=== PATIENT | male | born 1955 | race Caucasian/White ===

== ENCOUNTER 2023-12-23 06:30 | Day surgery (SDC) | payer OTHER ==
[~2023-12-23 06:30] MED LIST: Acetaminophen 325 MG Tab PO ONE; Acetaminophen 325 MG Tab PO SCH; Lactated Ringers 1,000 ML IV SCH; Morphine 8 MG, EPINEPHrine 0.3 MG, Cefuroxime 750 MG, Ketorolac 30 MG, Sodium Chloride ... PRN; Pregabalin 25 MG Cap PO ONE; Pregabalin 25 MG Cap PO SCH; Sodium Chloride 0.9% 10 ML Syringe FLUSH PRN; Sodium Chloride 0.9% 10 ML Syringe FLUSH SCH; Tranexamic Acid 1,000 MG/10 ML Vial ONE; Vancomycin 1 GM SDV ONE; oxyCODONE ER 10 MG TAB.ER PO ONE; oxyCODONE ER 10 MG TAB.ER PO SCH
[2023-12-23] MEDS ORDERED: Morphine 8 MG, EPINEPHrine 0.3 MG, Cefuroxime 750 MG, Ketorolac 30 MG, Sodium Chloride ... PRN ×5 (06:55)
[2023-12-23] MEDS ORDERED: Ropivacaine 0.5% 5 MG/ML 30 ML SDV ONE (06:59)
[2023-12-23] MEDS ORDERED: Propofol 200 MG/20 ML SDV ONE ×3 (07:00→07:01)
[2023-12-23] MEDS ORDERED: Midazolam 1 MG/ML 2 ML SDV ONE ×2 (07:00→07:12)
[2023-12-23] MEDS ORDERED: Lidocaine 2% 5 ML SDV ONE (07:06)
[2023-12-23] MEDS ORDERED: ceFAZolin 2 GM Vial ONE (07:32)
[2023-12-23] MEDS ORDERED: fentaNYL 100 MCG/2 ML SDV ONE (07:42)
[2023-12-23] MEDS ORDERED: ePHEDrine 50 MG/ML SDV ONE (08:06)
[2023-12-23] MEDS ORDERED: EPINEPHrine 1 MG/ML SDV ONE (08:22)
[2023-12-23] MEDS ORDERED: HYDROmorphone 0.5 MG/0.5 ML Syringe IVPUSH PRN (08:26)
[2023-12-23] MEDS ORDERED: Ondansetron 4 MG/2 ML SDV IVPUSH PRN (08:26)
[2023-12-23] MEDS: fentaNYL 100 MCG/2 ML SDV IVPUSH PRN ×2 (09:18→09:31)
[2023-12-23] MEDS ORDERED: Cyclobenzaprine 10 MG Tab PO PRN (09:27)
[2023-12-23] MEDS: oxyCODONE 5 MG Tab PO PRN ×2 (09:55→13:55)
== END 2023-12-23 13:55 | disposition home or self-care (01) ==
LOC: JD.SDS 06:30
PROVIDERS: ATTEND Orthopaedic Surgery
DX: M17.11 Unilateral primary osteoarthritis, right knee (principal); I10 Essential (primary) hypertension; K21.9 Gastro-esophageal reflux disease without esophagitis; E66.9 Obesity, unspecified; Z68.32 Body mass index [BMI] 32.0-32.9, adult; Z79.899 Other long term (current) drug therapy
CPT/HCPCS: 73560-26-RT; 73560-RT; 97161-GP; A9270-GY; C1713; C1776; J0171; J0690; J0697; J1170; J1885; J2250; J2270; J2704; J2795; J3010; J3370; J3490; J7030; J7120